=== PATIENT | male | born 1960 | race Hispanic/Latino ===

== ENCOUNTER 2021-01-31 11:11 | Inpatient (IN) | payer OTHER ==
[~2021-01-31] VITALS: Ht 177.8 cm; Wt 66.7 kg
[2021-01-31] MEDS ORDERED: IPRATROPIUM/ALBUTEROL SULFATE 3 ML SOLUTION IH ONE (11:13)
[2021-01-31] MEDS ORDERED: ENOXAPARIN SODIUM 80 MG/0.8 ML SQ ONE (11:20)
[2021-01-31 11:24] LABS: BASOPHILS % (AUTO) 0.4 % (0.0-5.0); EOSINOPHILS % (AUTO) 0.2 % (0.0-8.0); HEMATOCRIT 43.2 % (42-54); LYMPHOCYTES % (AUTO) 8.1 % (21.0-51.0); MEAN CORPUSCULAR HEMOGLOBIN 29.6 pg (27.0-33.0); MEAN CORPUSCULAR HGB CONC 33.3 g/dL (32.0-36.0); MEAN CORPUSCULAR VOLUME 88.7 fL (79-99); MONOCYTES % (AUTO) 5.4 % (3.0-13.0); NEUTROPHILS % (AUTO) 85.5 % (40.0-77.0); PLATELET COUNT (AUTO) 355 K/uL (130-400); RED BLOOD CELL COUNT(AUTO) 4.87 MIL/uL (4.50-6.20); RED CELL DISTRIBUTION WIDTH 12.9 % (11.0-15.5); WHITE BLOOD COUNT (AUTO) 21.5 K/uL (4.8-10.8)
[2021-01-31 11:28] LABS: ABG HCO3 30.2 mmol/L (21.0-28.0); ABG OXYGEN SATURATION 95.1 % (95.0-99.0); ABG PCO2 69 mmHg (35-48)
[2021-01-31 11:35] LABS: CREATININE 0.9 mg/dL (0.5-1.5); INR 1.04 (0.85-1.15); POTASSIUM 3.6 mmol/L (3.5-5.1); PROTHROMBIN TIME 11.3 SEC (9.6-11.6)
[2021-01-31 11:36] LABS: PARTIAL THROMBOPLASTIN TIME 26.4 SEC (26.3-35.5)
[2021-01-31 11:40] LABS: ALBUMIN 3.2 g/dL (3.5-5.0); BILIRUBIN,TOTAL 0.5 mg/dL (0.2-1.0); TOTAL PROTEIN, SERUM 7.7 g/dL (6.0-8.3)
[2021-01-31 12:40] LABS: AMPHET/METH SCREEN,URINE NEGATIVE (NEGATIVE); BARBITURATE SCREEN, URINE NEGATIVE (NEGATIVE); BENZODIAZEPINES SCREEN,URINE NEGATIVE (NEGATIVE); CANNABINOID SCREEN,URINE NEGATIVE (NEGATIVE); COCAINE SCREEN,URINE POSITIVE (NEGATIVE); OPIATE SCREEN,URINE NEGATIVE (NEGATIVE); PHENCYCLIDINE SCREEN,URINE NEGATIVE (NEGATIVE)
[2021-01-31] MEDS ORDERED: ACETAMINOPHEN 325 MG TAB PO PRN (15:15)
[2021-01-31] MEDS ORDERED: 0.9%NACL 100ML 100 ML IV SCH (15:15)
[2021-01-31] MEDS ORDERED: ONDANSETRON 4MG INJ IVP PRN (15:15)
[2021-01-31 15:20] LABS: ABG BASE EXCESS 4.4 mmol/L (-2.0-3.0); ABG HCO3 35.2 mmol/L (21.0-28.0); ABG OXYGEN SATURATION 96.8 % (95.0-99.0); ABG PCO2 85 mmHg (35-48)
[2021-01-31] MEDS ORDERED: PHARMACY COMMUNICATION MISC SCH (15:30)
[2021-01-31 16:12] VITALS: BP 144/89
[2021-01-31] MEDS ORDERED: IOHEXOL-350 75 ML VIAL IV ONE (17:30)
[2021-01-31] MEDS ORDERED: DOXYCYCLINE 100MG+NS 250ML IV SCH (19:00)
[2021-01-31] MEDS ORDERED: FUROSEMIDE 40MG VIAL IV SCH (19:00)
[2021-01-31] MEDS ORDERED: ERGOCALCIFEROL (VITAMIN D2) 50,000 UNIT CAPSULE PO ONE (19:00)
[2021-01-31 19:36] LABS: ABG BASE EXCESS 5.6 mmol/L (-2.0-3.0); ABG HCO3 37.2 mmol/L (21.0-28.0); ABG OXYGEN SATURATION 99.2 % (95.0-99.0); ABG PCO2 94 mmHg (35-48)
[2021-01-31] MEDS ORDERED: LORAZEPAM 2 MG/ML 1 ML VIAL IVP ONE (19:45)
[2021-01-31] MEDS: DOXYCYCLINE 100MG+NS 250ML 250 ML IV SCH (21:00)
[2021-01-31] MEDS: ACETYLCYSTEINE 600 MG CAPSULE PO SCH (21:00)
[2021-01-31] MEDS: GABAPENTIN 300 MG CAPSULE PO SCH (21:00)
[2021-01-31 21:30] VITALS: BP 113/64
[2021-01-31] MEDS: FUROSEMIDE 20MG VIAL IV SCH (21:30)
[2021-01-31] MEDS: ENOXAPARIN SODIUM 80 MG/0.8 ML SQ SCH (21:30)
[2021-01-31] MEDS: SOLU-MEDROL 40MG VIAL IVP SCH (21:30)
[2021-01-31] MEDS: CEFTRIAXONE 1G VIAL IVP SCH (22:00)
[2021-01-31 22:10] VITALS: BP 121/68
[2021-01-31 23:00] VITALS: BP 108/64
[2021-01-31] MEDS ORDERED: HALOPERIDOL INJ 5 MG/ML VIAL ONE (23:06)
[2021-01-31] MEDS: HALOPERIDOL INJ 5 MG/ML VIAL IM SCH (23:15)
[2021-02-01] VITALS (23 sets, daily range): BP systolic 93–143; BP diastolic 52–88
[2021-02-01] MEDS: DEXMEDETOMIDINE HCL 400 MCG in 0.9%NACL 100ML 100 ML IV SCH ×2 (00:31→21:49)
[2021-02-01] MEDS ORDERED: LORAZEPAM 2 MG/ML 1 ML VIAL ONE (03:05)
[2021-02-01] MEDS: SOLU-MEDROL 40MG VIAL IVP SCH ×3 (04:22→21:50)
[2021-02-01] MEDS: FUROSEMIDE 20MG VIAL IV SCH ×3 (04:22→21:51)
[2021-02-01] MEDS ORDERED: DEXMEDETOMIDINE HCL 200 MCG/2 ML VIAL IV ONE (04:37)
[2021-02-01] MEDS ORDERED: 0.9%NACL 100ML 100 ML IV ONE (04:38)
[2021-02-01 04:57] LABS: ABG BASE EXCESS 6.5 mmol/L (-2.0-3.0); ABG HCO3 35.2 mmol/L (21.0-28.0); ABG OXYGEN SATURATION 93.8 % (95.0-99.0); ABG PCO2 69 mmHg (35-48)
[2021-02-01] MEDS ORDERED: LORAZEPAM 2 MG/ML 1 ML VIAL IVP ONE (05:00)
[2021-02-01 05:55] LABS: BASOPHILS % (AUTO) 0.3 % (0.0-5.0); EOSINOPHILS % (AUTO) 0.3 % (0.0-8.0); HEMATOCRIT 39.8 % (42-54); LYMPHOCYTES % (AUTO) 2.5 % (21.0-51.0); MEAN CORPUSCULAR HEMOGLOBIN 28.3 pg (27.0-33.0); MEAN CORPUSCULAR HGB CONC 31.9 g/dL (32.0-36.0); MEAN CORPUSCULAR VOLUME 88.8 fL (79-99); MONOCYTES % (AUTO) 3.1 % (3.0-13.0); NEUTROPHILS % (AUTO) 92.8 % (40.0-77.0); PLATELET COUNT (AUTO) 293 K/uL (130-400); RED BLOOD CELL COUNT(AUTO) 4.48 MIL/uL (4.50-6.20)
[2021-02-01 05:56] LABS: WHITE BLOOD COUNT (AUTO) 34.8 K/uL (4.8-10.8)
[2021-02-01 06:06] LABS: CREATININE 0.8 mg/dL (0.5-1.5); POTASSIUM 4.2 mmol/L (3.5-5.1)
[2021-02-01 06:18] LABS: BAND NEUTROPHILS % (MANUAL) 32 % (0-2); LYMPHOCYTES % (MANUAL) 5 % (22-44); MAN.DIFF COMMENT-IMPRESSION MANUAL DIF; MONOCYTES % (MANUAL) 4 % (2-9); SEGMENTED NEUTROPHILS % 59 % (40-70)
[2021-02-01 06:19] LABS: PLATELET MORPHOLOGY COMMENT ADEQUATE
[2021-02-01] MEDS: CEFTRIAXONE 1G VIAL IVP SCH ×2 (06:26→18:05)
[2021-02-01] MEDS: LISINOPRIL 10 MG TABLET PO SCH (09:00)
[2021-02-01] MEDS: ASCORBIC ACID 500 MG TAB PO SCH ×2 (09:00→10:32)
[2021-02-01] MEDS: ACETYLCYSTEINE 600 MG CAPSULE PO SCH ×3 (09:00→21:51)
[2021-02-01] MEDS: PANTOPRAZOLE 40 MG TAB DR PO SCH ×2 (09:00→10:32)
[2021-02-01] MEDS: DOXYCYCLINE 100MG+NS 250ML 250 ML IV SCH ×2 (09:03→21:49)
[2021-02-01] MEDS: ENOXAPARIN SODIUM 80 MG/0.8 ML SQ SCH ×2 (09:09→21:50)
[2021-02-01] MEDS ORDERED: IOHEXOL 350 MG/ML 100ML INFUS..BTL IV ONE (14:41)
[2021-02-01] MEDS: NICOTINE 14 MG/ 24 HR PATCH TD SCH (15:59)
[2021-02-01] MEDS: CLONAZEPAM 0.5 MG TABLET PO SCH ×2 (15:59→21:51)
[2021-02-01] MEDS: GABAPENTIN 300 MG CAPSULE PO SCH (21:51)
[2021-02-01] MEDS: HALOPERIDOL INJ 5 MG/ML VIAL IM SCH (23:15)
[2021-02-02] VITALS (8 sets, daily range): BP systolic 101–133; BP diastolic 67–75
[2021-02-02] MEDS: FUROSEMIDE 20MG VIAL IV SCH (05:38)
[2021-02-02] MEDS: SOLU-MEDROL 40MG VIAL IVP SCH (05:38)
[2021-02-02] MEDS: LISINOPRIL 10 MG TABLET PO SCH (08:10)
[2021-02-02] MEDS: DOXYCYCLINE 100MG+NS 250ML 250 ML IV SCH (08:10)
[2021-02-02] MEDS: CEFTRIAXONE 1G VIAL IVP SCH (08:10)
[2021-02-02] MEDS: PANTOPRAZOLE 40 MG TAB DR PO SCH (08:10)
[2021-02-02] MEDS: ACETYLCYSTEINE 600 MG CAPSULE PO SCH (08:10)
[2021-02-02] MEDS: CLONAZEPAM 0.5 MG TABLET PO SCH (08:10)
[2021-02-02] MEDS: ASCORBIC ACID 500 MG TAB PO SCH (08:10)
[2021-02-02] MEDS: ENOXAPARIN SODIUM 80 MG/0.8 ML SQ SCH (08:11)
[2021-02-02] MEDS: NICOTINE 14 MG/ 24 HR PATCH TD SCH (08:11)
== END 2021-02-02 09:40 | disposition left against medical advice (07) | DRG 175 ==
LOC: EDH 11:11 → 4BH 11:12 → 2DH 21:14
PROVIDERS: ADMIT Family Medicine; ATTEND Family Medicine
PROC: 5A09357 Assistance with Respiratory Ventilation, Less than 24 Consecutive Hours, Continuous Positive Airway Pressure (ICD-10-PCS; principal; 2021-01-31)
PROC: 5A09357 Assistance with Respiratory Ventilation, Less than 24 Consecutive Hours, Continuous Positive Airway Pressure (ICD-10-PCS; 2021-02-01)
DX: I26.99 Other pulmonary embolism without acute cor pulmonale (principal); J96.01 Acute respiratory failure with hypoxia; J96.02 Acute respiratory failure with hypercapnia; J98.11 Atelectasis; J44.1 Chronic obstructive pulmonary disease with (acute) exacerbation; I10 Essential (primary) hypertension; G89.29 Other chronic pain; M54.9 Dorsalgia, unspecified; F19.10 Other psychoactive substance abuse, uncomplicated; F14.10 Cocaine abuse, uncomplicated; F17.210 Nicotine dependence, cigarettes, uncomplicated; Z20.822 Contact with and (suspected) exposure to COVID-19; Z86.711 Personal history of pulmonary embolism; Z71.51 Drug abuse counseling and surveillance of drug abuser; Z79.01 Long term (current) use of anticoagulants; Z79.899 Other long term (current) drug therapy
CPT/HCPCS: 36415; 36600; 71045; 71275; 80048; 80053; 80305; 82728; 82803; 83880; 84484; 85025; 85378; 85610; 85730; 86140; 87040; 87088; 87426; 93005; 94640; 94660; J0696; J1630; J1650; J1940; J2060; J2920; J3490; Q9967; U0003

== ENCOUNTER 2021-06-26 21:27 | Inpatient (IN) | payer OTHER ==
[~2021-06-26] VITALS: Ht 177.8 cm; Wt 76.8 kg
[2021-06-26 23:22] LABS: BASOPHILS % (AUTO) 0.4 % (0.0-5.0); EOSINOPHILS % (AUTO) 0.2 % (0.0-8.0); HEMATOCRIT 24.3 % (42-54); LYMPHOCYTES % (AUTO) 12.5 % (21.0-51.0); MEAN CORPUSCULAR HEMOGLOBIN 27.8 pg (27.0-33.0); MEAN CORPUSCULAR HGB CONC 30.9 g/dL (32.0-36.0); MONOCYTES % (AUTO) 10.4 % (3.0-13.0); NEUTROPHILS % (AUTO) 75.9 % (40.0-77.0); PLATELET COUNT (AUTO) 271 K/uL (130-400); WHITE BLOOD COUNT (AUTO) 12.7 K/uL (4.8-10.8)
[2021-06-26 23:35] LABS: INR 1.07 (0.85-1.15); PROTHROMBIN TIME 11.6 SEC (9.6-11.6)
[2021-06-26 23:37] LABS: CREATININE 1.2 mg/dL (0.5-1.5); POTASSIUM 3.6 mmol/L (3.5-5.1)
[2021-06-26 23:38] VITALS: BP 144/75
[2021-06-26 23:41] LABS: B-TYPE NATRIURETIC PEPTIDE 741 pg/mL (0-100)
[2021-06-26 23:42] LABS: ALBUMIN 2.3 g/dL (3.5-5.0); BILIRUBIN,TOTAL 0.2 mg/dL (0.2-1.0); TOTAL PROTEIN, SERUM 6.8 g/dL (6.0-8.3)
[2021-06-26 23:56] LABS: APPEARANCE,URINE Clear (CLEAR); BILIRUBIN,URINE Negative (NEGATIVE); COLOR,URINE Yellow (YELLOW); GLUCOSE, URINE (UA) Negative (NEGATIVE); KETONES,URINE Negative (NEGATIVE); LEUKOCYTE ESTERASE ,URINE Negative (NEGATIVE); NITRATE,URINE Negative (NEGATIVE); OCCULT BLOOD,URINE Negative (NEGATIVE); PH,URINE 6.5 (5.0-8.0); PROTEIN,URINE Trace mg/dL (NEGATIVE)
[2021-06-27] VITALS (13 sets, daily range): BP systolic 121–162; BP diastolic 62–90
[2021-06-27] MEDS ORDERED: ONDANSETRON 4MG INJ ONE (02:07)
[2021-06-27] MEDS ORDERED: MORPHINE 2 MG SYG ONE (02:08)
[2021-06-27 03:00] LABS: ABG BASE EXCESS 7.4 mmol/L (-2.0-3.0); ABG HCO3 33.4 mmol/L (21.0-28.0); ABG OXYGEN SATURATION 78.6 % (95.0-99.0); ABG PCO2 52 mmHg (35-48)
[2021-06-27] MEDS ORDERED: 0.9% NACL 250ML IVPB ONE ×2 (03:00)
[2021-06-27] MEDS ORDERED: CEFTRIAXONE 1G VIAL IVP ONE ×2 (03:00)
[2021-06-27] MEDS ORDERED: AZITHROMYCIN 500MG VIAL IVPB ONE ×2 (03:00)
[2021-06-27] MEDS ORDERED: AZITHROMYCIN 500MG+NS 250ML 250 ML IV ONE (03:05)
[2021-06-27] MEDS ORDERED: ONDANSETRON 4MG INJ IV PRN (04:00)
[2021-06-27] MEDS ORDERED: NITROGLYCERIN 0.4 MG SL TAB SL PRN (04:00)
[2021-06-27] MEDS ORDERED: CEFTRIAXONE 1G VIAL IV SCH (04:00)
[2021-06-27] MEDS ORDERED: PIP/TAZ ZOSYN 3.375G 3.375 GM VIAL IVPB SCH (05:00)
[2021-06-27] MEDS ORDERED: 0.9%NACL 50ML 50 ML IV ONE (05:22)
[2021-06-27] MEDS: 0.9%NACL 1000ML 1,000 ML IV SCH ×2 (05:42→13:12)
[2021-06-27] MEDS: ZOSYN 3.375GM+NS 50ML 50 ML IV SCH ×3 (05:42→20:10)
[2021-06-27 06:52] LABS: HEMATOCRIT 22.6 % (42-54)
[2021-06-27 07:25] LABS: CHOLESTEROL 133 mg/dL (<200); CREATINE KINASE, TOTAL 31 U/L (21-232); HDL CHOLESTEROL 37 mg/dL (29-71); LDL DIRECT 81 mg/dL (0-99); MYOGLOBIN 27 ng/mL (10-92); TRIGLYCERIDES 88 mg/dL (30-200); TROPONIN I < 0.04 ng/mL (0.00-0.06)
[2021-06-27] MEDS: MORPHINE 2 MG SYG IV PRN ×3 (08:10→20:11)
[2021-06-27 10:25] LABS: ABG HCO3 29.1 mmol/L (21.0-28.0); ABG PCO2 45 mmHg (35-48)
[2021-06-27] MEDS: ASPIRIN 325MG TAB PO SCH (10:54)
[2021-06-27] MEDS: FAMOTIDINE 20MG VIAL IV SCH ×2 (10:54→20:10)
[2021-06-27 11:18] LABS: HEMATOCRIT 25.1 % (42-54)
[2021-06-27 11:39] LABS: CREATINE KINASE, TOTAL 20 U/L (21-232); MYOGLOBIN 26 ng/mL (10-92); TROPONIN I < 0.04 ng/mL (0.00-0.06)
[2021-06-27] MEDS ORDERED: AMIT25TA9 PO (12:28)
[2021-06-27] MEDS ORDERED: GABA300T25 PO (12:28)
[2021-06-27] MEDS ORDERED: LISI10TA24 PO (12:28)
[2021-06-27] MEDS ORDERED: PRED10B PO (12:28)
[2021-06-27] MEDS ORDERED: ASPI-1197 PO (12:28)
[2021-06-27] MEDS: INSULIN HUMULIN R 100 UNIT/ML 3ML SQ SCH ×2 (17:20→23:25)
[2021-06-27 20:27] LABS: CREATINE KINASE, TOTAL 17 U/L (21-232); MYOGLOBIN 24 ng/mL (10-92); TROPONIN I < 0.04 ng/mL (0.00-0.06)
[2021-06-28] MEDS: MORPHINE 4 MG SYG IV PRN ×2 (00:23→23:19)
[2021-06-28] MEDS: ZOSYN 3.375GM+NS 50ML 50 ML IV SCH ×3 (03:46→20:55)
[2021-06-28 04:00] VITALS: BP 139/78
[2021-06-28] MEDS ORDERED: AZITHROMYCIN 500MG VIAL IVPB SCH (04:00)
[2021-06-28] MEDS ORDERED: 0.9% NACL 250ML IVPB SCH (04:00)
[2021-06-28] MEDS: MORPHINE 2 MG SYG IV PRN ×4 (04:53→19:07)
[2021-06-28 05:18] LABS: HEMATOCRIT 27.6 % (42-54); LYMPHOCYTES % (AUTO) 19.2 % (21.0-51.0); MEAN CORPUSCULAR HEMOGLOBIN 28.1 pg (27.0-33.0); MEAN CORPUSCULAR HGB CONC 31.9 g/dL (32.0-36.0); MEAN CORPUSCULAR VOLUME 88.2 fL (79-99); MONOCYTES % (AUTO) 9.9 % (3.0-13.0); NEUTROPHILS % (AUTO) 67.2 % (40.0-77.0); PLATELET COUNT (AUTO) 258 K/uL (130-400); RED BLOOD CELL COUNT(AUTO) 3.13 MIL/uL (4.50-6.20); RED CELL DISTRIBUTION WIDTH 15.5 % (11.0-15.5); WHITE BLOOD COUNT (AUTO) 9.2 K/uL (4.8-10.8)
[2021-06-28 05:34] LABS: INR 1.06 (0.85-1.15); PROTHROMBIN TIME 11.5 SEC (9.6-11.6)
[2021-06-28 05:35] LABS: PARTIAL THROMBOPLASTIN TIME 28.8 SEC (26.3-35.5)
[2021-06-28 05:47] LABS: MAGNESIUM 1.5 mg/dL (1.80-2.40); PHOSPHORUS 3.8 mg/dL (2.5-4.9); POTASSIUM 3.6 mmol/L (3.5-5.1)
[2021-06-28] MEDS: INSULIN HUMULIN R 100 UNIT/ML 3ML SQ SCH ×2 (05:59→12:00)
[2021-06-28] MEDS ORDERED: MAGNESIUM 2GM PREMIX 50ML 50 ML IV PRN (06:30)
[2021-06-28] MEDS ORDERED: MAGNESIUM 2GM PREMIX 50ML 50 ML IV ONE (06:32)
[2021-06-28] MEDS: ASPIRIN 325MG TAB PO SCH (07:23)
[2021-06-28] MEDS: FAMOTIDINE 20MG VIAL IV SCH ×2 (07:23→20:55)
[2021-06-28 07:35] VITALS: BP 151/85
[2021-06-28 11:27] VITALS: BP 163/91
[2021-06-28 12:34] LABS: HEMATOCRIT 27.8 % (42-54)
[2021-06-28 15:22] VITALS: BP 147/87
[2021-06-28 19:56] LABS: HEMATOCRIT 29.3 % (42-54)
[2021-06-28 20:00] VITALS: BP 157/84
[2021-06-28] MEDS: ENOXAPARIN SODIUM 30 MG/0.3 ML SQ SCH (21:04)
[2021-06-28 23:45] VITALS: BP 169/93
[2021-06-29 03:49] LABS: HEMATOCRIT 27.6 % (42-54); MEAN CORPUSCULAR HEMOGLOBIN 28.4 pg (27.0-33.0); MEAN CORPUSCULAR VOLUME 86.3 fL (79-99); RED BLOOD CELL COUNT(AUTO) 3.2 MIL/uL (4.50-6.20); RED CELL DISTRIBUTION WIDTH 15.1 % (11.0-15.5); WHITE BLOOD COUNT (AUTO) 8.5 K/uL (4.8-10.8)
[2021-06-29] MEDS: MORPHINE 4 MG SYG IV PRN ×4 (03:56→20:16)
[2021-06-29 04:04] LABS: POTASSIUM 3.2 mmol/L (3.5-5.1)
[2021-06-29 04:10] VITALS: BP 146/70
[2021-06-29] MEDS: ZOSYN 3.375GM+NS 50ML 50 ML IV SCH ×3 (04:53→20:07)
[2021-06-29 08:00] VITALS: BP 154/74
[2021-06-29] MEDS: FAMOTIDINE 20MG VIAL IV SCH ×2 (08:55→20:07)
[2021-06-29] MEDS: ASPIRIN 325MG TAB PO SCH (08:56)
[2021-06-29 12:00] VITALS: BP 159/96
[2021-06-29] MEDS: 0.9%NACL 1000ML 1,000 ML IV SCH (15:00)
[2021-06-29] MEDS: ZINC OXIDE OINT 60GM TUBE TP SCH ×2 (15:06→22:18)
[2021-06-29 16:00] VITALS: BP 124/89
[2021-06-29] MEDS ORDERED: LIDOCAINE HCL-MPF 1% 2ML VIAL IV PRN (16:00)
[2021-06-29] MEDS ORDERED: ZINC OXIDE OINT 56.7 GM TP SCH (16:00)
[2021-06-29 20:00] VITALS: BP 143/77
[2021-06-29] MEDS: ENOXAPARIN SODIUM 30 MG/0.3 ML SQ SCH (22:19)
[2021-06-29 23:39] VITALS: BP 156/87
[2021-06-30] MEDS: MORPHINE 4 MG SYG IV PRN ×4 (00:19→21:08)
[2021-06-30 04:00] VITALS: BP 145/80
[2021-06-30 04:17] LABS: BASOPHILS % (AUTO) 0.5 % (0.0-5.0); EOSINOPHILS % (AUTO) 2.4 % (0.0-8.0); HEMATOCRIT 29.4 % (42-54); MEAN CORPUSCULAR HEMOGLOBIN 28.3 pg (27.0-33.0); MEAN CORPUSCULAR HGB CONC 32.7 g/dL (32.0-36.0); MEAN CORPUSCULAR VOLUME 86.7 fL (79-99); MONOCYTES % (AUTO) 8.1 % (3.0-13.0); NEUTROPHILS % (AUTO) 73.6 % (40.0-77.0); PLATELET COUNT (AUTO) 243 K/uL (130-400); RED BLOOD CELL COUNT(AUTO) 3.39 MIL/uL (4.50-6.20); WHITE BLOOD COUNT (AUTO) 7.4 K/uL (4.8-10.8)
[2021-06-30 04:29] LABS: CREATININE 1.1 mg/dL (0.5-1.5); POTASSIUM 3.3 mmol/L (3.5-5.1)
[2021-06-30] MEDS: ZOSYN 3.375GM+NS 50ML 50 ML IV SCH ×3 (05:07→20:57)
[2021-06-30] MEDS: POTASSIUM CHLORIDE 20MEQ/100ML 100 ML IV PRN ×2 (05:17→09:29)
[2021-06-30 08:00] VITALS: BP 137/92
[2021-06-30] MEDS: FAMOTIDINE 20MG VIAL IV SCH ×2 (09:02→20:57)
[2021-06-30] MEDS: ZINC OXIDE OINT 60GM TUBE TP SCH ×2 (09:03→21:08)
[2021-06-30] MEDS: 0.9%NACL 1000ML 1,000 ML IV SCH ×2 (09:03→17:40)
[2021-06-30] MEDS: ASPIRIN 325MG TAB PO SCH (09:28)
[2021-06-30 11:00] VITALS: BP 151/92
[2021-06-30 16:00] VITALS: BP 160/95
[2021-06-30 20:00] VITALS: BP 148/98
[2021-06-30] MEDS: ENOXAPARIN SODIUM 30 MG/0.3 ML SQ SCH (21:07)
[2021-07-01] VITALS: BP 146/87
[2021-07-01] MEDS: MORPHINE 4 MG SYG IV PRN ×2 (02:25→09:42)
[2021-07-01 04:00] VITALS: BP 145/80
[2021-07-01 04:07] LABS: BASOPHILS % (AUTO) 0.9 % (0.0-5.0); EOSINOPHILS % (AUTO) 2.6 % (0.0-8.0); HEMATOCRIT 27.4 % (42-54); LYMPHOCYTES % (AUTO) 27.5 % (21.0-51.0); MEAN CORPUSCULAR HEMOGLOBIN 28.1 pg (27.0-33.0); MEAN CORPUSCULAR HGB CONC 32.1 g/dL (32.0-36.0); MEAN CORPUSCULAR VOLUME 87.5 fL (79-99); MONOCYTES % (AUTO) 12.4 % (3.0-13.0); NEUTROPHILS % (AUTO) 56.2 % (40.0-77.0); PLATELET COUNT (AUTO) 208 K/uL (130-400); RED BLOOD CELL COUNT(AUTO) 3.13 MIL/uL (4.50-6.20); WHITE BLOOD COUNT (AUTO) 6.9 K/uL (4.8-10.8)
[2021-07-01 04:22] LABS: CREATININE 1.1 mg/dL (0.5-1.5); POTASSIUM 3.3 mmol/L (3.5-5.1)
[2021-07-01] MEDS: ZOSYN 3.375GM+NS 50ML 50 ML IV SCH (05:39)
[2021-07-01] MEDS: 0.9%NACL 1000ML 1,000 ML IV SCH (07:00)
[2021-07-01 08:00] VITALS: BP 148/75
[2021-07-01] MEDS: ZINC OXIDE OINT 60GM TUBE TP SCH (09:00)
[2021-07-01] MEDS: FAMOTIDINE 20MG VIAL IV SCH (09:41)
[2021-07-01] MEDS: ASPIRIN 325MG TAB PO SCH (09:41)
[2021-07-01 12:00] VITALS: BP 152/75
== END 2021-07-01 18:35 | disposition home or self-care (01) | DRG 177 ==
LOC: EDH 21:27 → EDHIP 21:28 → 4BH 06-27 13:17
PROVIDERS: ADMIT Hospitalist; ATTEND Hospitalist
PROC: 30233N1 Transfusion of Nonautologous Red Blood Cells into Peripheral Vein, Percutaneous Approach (ICD-10-PCS; principal; 2021-06-27)
DX: J69.0 Pneumonitis due to inhalation of food and vomit (principal); J96.01 Acute respiratory failure with hypoxia; J44.0 Chronic obstructive pulmonary disease with (acute) lower respiratory infection; R13.10 Dysphagia, unspecified; D64.9 Anemia, unspecified; D72.829 Elevated white blood cell count, unspecified; I25.2 Old myocardial infarction; Z87.01 Personal history of pneumonia (recurrent); Z87.891 Personal history of nicotine dependence; Z93.1 Gastrostomy status; Z83.3 Family history of diabetes mellitus; Z82.0 Family history of epilepsy and other diseases of the nervous system; Z82.49 Family history of ischemic heart disease and other diseases of the circulatory system
CPT/HCPCS: 36415; 36600; 71045; 74230; 80048; 80053; 80061; 81003; 82270; 82550; 82803; 82948; 83605; 83735; 83874; 83880; 84100; 84145; 84484; 85014; 85018; 85025; 85027; 85610; 85730; 86850; 86900; 86901; 86923; 87040; 92526; 92610; 92611; 93005; 99291; G0378; J0456; J0696; J1650; J2270; J2405; J2543; J3475; J3480; J3490; J7030; P9016

== ENCOUNTER 2023-04-01 18:49 | Inpatient (IN) | payer OTHER ==
[~2023-04-01] VITALS: Ht 170.2 cm; Wt 56.5 kg
[~2023-04-01 18:49] MED LIST: AMIT25TA9 PO; ASPI-1197 PO; DOXY100T2 PO; FURO20TA6 PO; LISI10TA24 PO; METO25 PO; PRED20TA3 PO
[2023-04-01] MEDS ORDERED: ONDANSETRON 4MG INJ IVP ONE (20:30)
[2023-04-01] MEDS ORDERED: MORPHINE 4 MG SYG IVP ONE (20:30)
[2023-04-01 20:51] LABS: BASOPHILS % (AUTO) 0.5 % (0.0-5.0); EOSINOPHILS % (AUTO) 1.5 % (0.0-8.0); HEMATOCRIT 27.2 % (42-54); LYMPHOCYTES % (AUTO) 19.2 % (21.0-51.0); MEAN CORPUSCULAR HEMOGLOBIN 24.9 pg (27.0-33.0); MEAN CORPUSCULAR HGB CONC 30.9 g/dL (32.0-36.0); MEAN CORPUSCULAR VOLUME 80.7 fL (79-99); MONOCYTES % (AUTO) 8.8 % (3.0-13.0); NEUTROPHILS % (AUTO) 69.7 % (40.0-77.0); PLATELET COUNT (AUTO) 279 K/uL (130-400); RED BLOOD CELL COUNT(AUTO) 3.37 MIL/uL (4.50-6.20); RED CELL DISTRIBUTION WIDTH 18.1 % (11.0-15.5); WHITE BLOOD COUNT (AUTO) 5.8 K/uL (4.8-10.8)
[2023-04-01 21:14] LABS: CREATININE 0.6 mg/dL (0.5-1.5); POTASSIUM 3.3 mmol/L (3.5-5.1)
[2023-04-01 21:18] LABS: ALBUMIN 2.6 g/dL (3.5-5.0); MAGNESIUM 1.5 mg/dL (1.80-2.40); TOTAL PROTEIN, SERUM 7.3 g/dL (6.0-8.3)
[2023-04-01 21:19] LABS: APPEARANCE,URINE CLEAR (CLEAR); BILIRUBIN,URINE NEGATIVE (NEGATIVE); COLOR,URINE YELLOW (YELLOW); GLUCOSE, URINE (UA) NEGATIVE (NEGATIVE); KETONES,URINE NEGATIVE (NEGATIVE); LEUKOCYTE ESTERASE ,URINE 250 Leu/uL (NEGATIVE); NITRATE,URINE NEGATIVE (NEGATIVE); OCCULT BLOOD,URINE MODERATE (NEGATIVE); PH,URINE 6.5 (5.0-8.0); PROTEIN,URINE 70 mg/dL (NEGATIVE); UROBILINOGEN,URINE 0.2 mg/dL (0.2-1.0)
[2023-04-01 22:09] LABS: BACTERIA,URINE RARE /HPF (None Seen); MUCUS,URINE RARE LPF (None Seen); RBC,URINE TNTC /HPF (0-1); SQUAMOUS EPITHELIAL CELL,UR RARE /HPF (0-2); WBC,URINE 26-50 /HPF (0-1); YEAST,URINE BUDDING RARE /HPF (None Seen)
[2023-04-01] MEDS: MAGNESIUM 2GM PREMIX 50ML 50 ML IV SCH (22:40)
[2023-04-01] MEDS ORDERED: KETOROLAC 30MG VIAL (30MG/ML) IVP ONE (23:00)
[2023-04-01] MEDS ORDERED: 0.9%NACL 1000ML 1,000 ML IV ONE (23:00)
[2023-04-01] MEDS ORDERED: CEFTRIAXONE 1G VIAL IVPB ONE (23:00)
[2023-04-01] MEDS ORDERED: POTASSIUM BICARB/CIT AC 25 MEQ TABLET.EFF ONE (23:10)
[2023-04-01] MEDS ORDERED: ONDANSETRON 4MG INJ IV PRN (23:30)
[2023-04-01] MEDS ORDERED: MAG/ALUM/SIMETH 30 ML UDCUP PO PRN (23:30)
[2023-04-01] MEDS ORDERED: ACETAMINOPHEN 325 MG TAB PO PRN ×2 (23:30)
[2023-04-01] MEDS ORDERED: KCL 20 MEQ ERTAB PO PRN (23:30)
[2023-04-01] MEDS ORDERED: ACETAMINOPHEN WITH CODEINE 1 TAB TAB PO PRN (23:30)
[2023-04-01] MEDS ORDERED: LACTULOSE 20 GM/30 ML UDCUP PO PRN (23:30)
[2023-04-01] MEDS ORDERED: ALBUTEROL 0.083% 2.5 MG/3 ML INH IH PRN (23:30)
[2023-04-01] MEDS ORDERED: GUAIFENESIN-DM 200/20 MG 10 ML PO PRN (23:30)
[2023-04-01] MEDS ORDERED: IPRATROPIUM/ALBUTEROL SULFATE 3 ML SOLUTION IH PRN (23:30)
[2023-04-01] MEDS ORDERED: POTASSIUM CHLORIDE 10% ELIXIR 20 MEQ/15 ML UDCUP PO PRN (23:30)
[2023-04-01] MEDS ORDERED: POTASSIUM CHLORIDE 20MEQ/100ML 100 ML IV PRN (23:30)
[2023-04-01] MEDS ORDERED: DiphenhydrAMINE HCL 50 MG/ML VIAL IV PRN (23:30)
[2023-04-01] MEDS ORDERED: POTASSIUM BICARB/CIT AC 25 MEQ TABLET.EFF PO ONE (23:30)
[2023-04-01] MEDS: 0.9%NACL 1000ML 1,000 ML IV SCH (23:53)
[2023-04-02] MEDS ORDERED: LACTULOSE 20 GM/30 ML UDCUP GT PRN
[2023-04-02 00:27] VITALS: BP 135/77
[2023-04-02] MEDS: MORPHINE 4 MG SYG IV PRN ×2 (02:23→09:49)
[2023-04-02] MEDS ORDERED: ACETAMINOPHEN 325 MG TAB GT PRN (03:30)
[2023-04-02 04:00] VITALS: BP 114/58
[2023-04-02] MEDS ORDERED: ACETAMINOPHEN 325 MG TAB PEG PRN (05:30)
[2023-04-02] MEDS ORDERED: MAG/ALUM/SIMETH 30 ML UDCUP PEG PRN (05:30)
[2023-04-02 06:46] LABS: HEMATOCRIT 25.2 % (42-54); MEAN CORPUSCULAR HEMOGLOBIN 24.8 pg (27.0-33.0); MEAN CORPUSCULAR HGB CONC 30.6 g/dL (32.0-36.0); MEAN CORPUSCULAR VOLUME 81.3 fL (79-99); RED BLOOD CELL COUNT(AUTO) 3.1 MIL/uL (4.50-6.20); WHITE BLOOD COUNT (AUTO) 3.2 K/uL (4.8-10.8)
[2023-04-02 07:52] LABS: CREATININE 0.6 mg/dL (0.5-1.5); MAGNESIUM 1.8 mg/dL (1.80-2.40); POTASSIUM 3.7 mmol/L (3.5-5.1)
[2023-04-02 08:34] VITALS: BP 134/65
[2023-04-02] MEDS ORDERED: FAMOTIDINE 20MG VIAL IV SCH (09:00)
[2023-04-02] MEDS: FAMOTIDINE 20MG VIAL IV SCH ×2 (09:15→21:05)
[2023-04-02] MEDS: ENOXAPARIN SODIUM 40 MG/0.4 ML SYRINGE SQ SCH (09:16)
[2023-04-02] MEDS: 0.9%NACL 1000ML 1,000 ML IV SCH ×2 (10:00→20:00)
[2023-04-02] MEDS: LACTOSE-REDUCED VAN/STB/CHOC 237 ML BOTTLE GT SCH ×3 (10:55→18:00)
[2023-04-02 12:35] VITALS: BP 143/86
[2023-04-02] MEDS: TRAMADOL HCL 50 MG TABLET PO PRN ×2 (13:33→21:58)
[2023-04-02] MEDS: KETOROLAC 15MG/ML VIAL (15MG/ML) IV PRN (15:06)
[2023-04-02 16:00] VITALS: BP 140/82
[2023-04-02] MEDS: MAGNESIUM 2GM PREMIX 50ML 50 ML IV SCH (18:18)
[2023-04-02 20:00] VITALS: BP 145/81
[2023-04-02] MEDS: CEFTRIAXONE 1G VIAL 1 GM in 0.9%NACL 50ML 50 ML IV SCH (21:05)
[2023-04-03] MEDS: LACTOSE-REDUCED VAN/STB/CHOC 237 ML BOTTLE GT SCH ×5 (00:23→22:26)
[2023-04-03] MEDS: KETOROLAC 15MG/ML VIAL (15MG/ML) IV PRN (02:28)
[2023-04-03 04:00] VITALS: BP 135/74
[2023-04-03 05:13] LABS: BASOPHILS % (AUTO) 0.5 % (0.0-5.0); EOSINOPHILS % (AUTO) 3.5 % (0.0-8.0); HEMATOCRIT 25.9 % (42-54); LYMPHOCYTES % (AUTO) 29.8 % (21.0-51.0); MEAN CORPUSCULAR HEMOGLOBIN 24.9 pg (27.0-33.0); MEAN CORPUSCULAR HGB CONC 30.9 g/dL (32.0-36.0); MEAN CORPUSCULAR VOLUME 80.7 fL (79-99); MONOCYTES % (AUTO) 9.8 % (3.0-13.0); NEUTROPHILS % (AUTO) 56.2 % (40.0-77.0); PLATELET COUNT (AUTO) 241 K/uL (130-400); RED BLOOD CELL COUNT(AUTO) 3.21 MIL/uL (4.50-6.20); RED CELL DISTRIBUTION WIDTH 17.8 % (11.0-15.5); WHITE BLOOD COUNT (AUTO) 4.3 K/uL (4.8-10.8)
[2023-04-03 05:27] LABS: % IRON SATURATION 14.8 % (30-44)
[2023-04-03 05:44] LABS: ALBUMIN 2.5 g/dL (3.5-5.0); CREATININE 0.6 mg/dL (0.5-1.5); MAGNESIUM 1.9 mg/dL (1.80-2.40); POTASSIUM 3.8 mmol/L (3.5-5.1); TOTAL PROTEIN, SERUM 6.7 g/dL (6.0-8.3)
[2023-04-03] MEDS: 0.9%NACL 1000ML 1,000 ML IV SCH ×2 (06:00→16:36)
[2023-04-03] MEDS: ENOXAPARIN SODIUM 40 MG/0.4 ML SYRINGE SQ SCH (08:29)
[2023-04-03] MEDS: FAMOTIDINE 20MG VIAL IV SCH ×2 (08:30→19:37)
[2023-04-03 08:40] VITALS: BP 143/75
[2023-04-03] MEDS: MORPHINE 4 MG SYG IV PRN ×4 (08:43→22:22)
[2023-04-03 11:33] VITALS: BP 140/72
[2023-04-03 16:50] VITALS: BP 144/77
[2023-04-03] MEDS ORDERED: CEFTRIAXONE 1G VIAL ONE (19:34)
[2023-04-03] MEDS: CEFTRIAXONE 1G VIAL 1 GM in 0.9%NACL 50ML 50 ML IV SCH (19:37)
[2023-04-03 19:50] VITALS: BP 154/88
[2023-04-04 00:20] VITALS: BP 149/70
[2023-04-04] MEDS: 0.9%NACL 1000ML 1,000 ML IV SCH ×2 (02:00→12:00)
[2023-04-04] MEDS: MORPHINE 4 MG SYG IV PRN (02:30)
[2023-04-04 04:13] VITALS: BP 148/87
[2023-04-04 04:35] LABS: BASOPHILS % (AUTO) 0.7 % (0.0-5.0); EOSINOPHILS % (AUTO) 3.1 % (0.0-8.0); HEMATOCRIT 30.6 % (42-54); LYMPHOCYTES % (AUTO) 43.5 % (21.0-51.0); MEAN CORPUSCULAR HEMOGLOBIN 24.5 pg (27.0-33.0); MEAN CORPUSCULAR HGB CONC 30.4 g/dL (32.0-36.0); MEAN CORPUSCULAR VOLUME 80.5 fL (79-99); MONOCYTES % (AUTO) 10.4 % (3.0-13.0); NEUTROPHILS % (AUTO) 42.1 % (40.0-77.0); PLATELET COUNT (AUTO) 298 K/uL (130-400); WHITE BLOOD COUNT (AUTO) 5.5 K/uL (4.8-10.8)
[2023-04-04] MEDS ORDERED: MORPHINE 2 MG SYG IVP ONE (04:45)
[2023-04-04 04:58] LABS: ALBUMIN 2.9 g/dL (3.5-5.0); CREATININE 0.6 mg/dL (0.5-1.5); MAGNESIUM 1.7 mg/dL (1.80-2.40); POTASSIUM 4.1 mmol/L (3.5-5.1); TOTAL PROTEIN, SERUM 7.6 g/dL (6.0-8.3)
[2023-04-04] MEDS: LACTOSE-REDUCED VAN/STB/CHOC 237 ML BOTTLE GT SCH ×3 (06:00→18:43)
[2023-04-04] MEDS: MAGNESIUM 2GM PREMIX 50ML 50 ML IV SCH (06:15)
[2023-04-04 07:25] VITALS: BP 149/69
[2023-04-04] MEDS: FAMOTIDINE 20MG VIAL IV SCH ×2 (08:13→20:55)
[2023-04-04] MEDS: ENOXAPARIN SODIUM 40 MG/0.4 ML SYRINGE SQ SCH (08:14)
[2023-04-04] MEDS: MORPHINE 2 MG SYG IV PRN ×4 (09:14→21:17)
[2023-04-04 11:25] VITALS: BP 150/77
[2023-04-04] MEDS ORDERED: CEFTRIAXONE 1G VIAL IVPB SCH (11:30)
[2023-04-04 15:25] VITALS: BP 161/75
[2023-04-04] MEDS ORDERED: HONEY 1 APPL/ML TUBE TP SCH (18:00)
[2023-04-04 20:09] VITALS: BP 155/87
[2023-04-04] MEDS: CEFTAZIDIME PENTAHYDRATE 1 GM/VIAL IVPB SCH (20:55)
[2023-04-04] MEDS: APIXABAN 5 MG TABLET PO SCH (20:56)
[2023-04-04] MEDS ORDERED: FLUCONAZOLE 200 MG/NS 100 ML IV SCH (21:00)
[2023-04-05 00:23] VITALS: BP 132/69
[2023-04-05] MEDS: MORPHINE 2 MG SYG IV PRN ×4 (02:16→14:00)
[2023-04-05 03:42] VITALS: BP 132/63
[2023-04-05] MEDS: CEFTAZIDIME PENTAHYDRATE 1 GM/VIAL IVPB SCH ×2 (04:44→12:03)
[2023-04-05 05:50] LABS: BASOPHILS % (AUTO) 0.9 % (0.0-5.0); EOSINOPHILS % (AUTO) 2.3 % (0.0-8.0); HEMATOCRIT 28.3 % (42-54); LYMPHOCYTES % (AUTO) 32.5 % (21.0-51.0); MEAN CORPUSCULAR HEMOGLOBIN 24.9 pg (27.0-33.0); MEAN CORPUSCULAR HGB CONC 30.7 g/dL (32.0-36.0); MEAN CORPUSCULAR VOLUME 80.9 fL (79-99); MONOCYTES % (AUTO) 10.8 % (3.0-13.0); NEUTROPHILS % (AUTO) 53.3 % (40.0-77.0); PLATELET COUNT (AUTO) 264 K/uL (130-400); RED CELL DISTRIBUTION WIDTH 18.2 % (11.0-15.5); WHITE BLOOD COUNT (AUTO) 5.6 K/uL (4.8-10.8)
[2023-04-05] MEDS: LACTOSE-REDUCED VAN/STB/CHOC 237 ML BOTTLE GT SCH ×4 (06:00→17:19)
[2023-04-05 06:09] LABS: ALBUMIN 2.6 g/dL (3.5-5.0); CREATININE 0.5 mg/dL (0.5-1.5); MAGNESIUM 1.7 mg/dL (1.80-2.40)
[2023-04-05] MEDS: MAGNESIUM 2GM PREMIX 50ML 50 ML IV SCH (07:35)
[2023-04-05 08:45] VITALS: BP 132/72
[2023-04-05] MEDS: APIXABAN 5 MG TABLET PO SCH (10:05)
[2023-04-05] MEDS: FAMOTIDINE 20MG VIAL IV SCH (10:05)
[2023-04-05] MEDS ORDERED: HONEY 1 APPL/ML TUBE TP SCH (11:30)
[2023-04-05 11:45] VITALS: BP 120/65
[2023-04-05] MEDS ORDERED: IRON SUCROSE COMPLEX 300 MG in 0.9% NACL 250ML 250 ML IV SCH (12:30)
[2023-04-05] MEDS ORDERED: PROCHLORPERAZINE 10MG/2ML INJ IV PRN (12:30)
[2023-04-05 16:00] VITALS: BP 141/82
[2023-04-05] MEDS: KETOROLAC 15MG/ML VIAL (15MG/ML) IV PRN (17:58)
== END 2023-04-05 19:20 | DRG 871 ==
LOC: EDH 18:49 → OBSVTOIN 23:19 → UNDOADMOB 23:19 → EDHIP 23:19 → 3CH 04-02 00:06
PROVIDERS: ADMIT Internal Medicine; ATTEND Internal Medicine
DX: A41.9 Sepsis, unspecified organism (principal); E43 Unspecified severe protein-calorie malnutrition; J18.9 Pneumonia, unspecified organism; J44.1 Chronic obstructive pulmonary disease with (acute) exacerbation; I50.32 Chronic diastolic (congestive) heart failure; N30.00 Acute cystitis without hematuria; J96.10 Chronic respiratory failure, unspecified whether with hypoxia or hypercapnia; Z16.19 Resistance to other specified beta lactam antibiotics; I48.0 Paroxysmal atrial fibrillation; I11.0 Hypertensive heart disease with heart failure; R13.12 Dysphagia, oropharyngeal phase; D63.8 Anemia in other chronic diseases classified elsewhere; E11.9 Type 2 diabetes mellitus without complications; E78.00 Pure hypercholesterolemia, unspecified; E83.42 Hypomagnesemia; E86.0 Dehydration; E87.6 Hypokalemia; F14.10 Cocaine abuse, uncomplicated; G89.29 Other chronic pain; I25.10 Atherosclerotic heart disease of native coronary artery without angina pectoris; L98.429 Non-pressure chronic ulcer of back with unspecified severity; M19.90 Unspecified osteoarthritis, unspecified site; Z53.29 Procedure and treatment not carried out because of patient's decision for other reasons; Z66 Do not resuscitate; Z79.01 Long term (current) use of anticoagulants; Z93.0 Tracheostomy status; I25.2 Old myocardial infarction; Z75.1 Person awaiting admission to adequate facility elsewhere; Z86.711 Personal history of pulmonary embolism; Z87.891 Personal history of nicotine dependence; Z91.199 Patient's noncompliance with other medical treatment and regimen due to unspecified reason; Z95.5 Presence of coronary angioplasty implant and graft
CPT/HCPCS: 36415; 71045; 74230; 80048; 80053; 81001; 82306; 82607; 82728; 83540; 83550; 83735; 85025; 85027; 85045; 87088; 92611; 94664; 97039; G0378; J0696; J0713; J1200; J1450; J1650; J1756; J1885; J2270; J2405; J3475; J3490; J7050